=== PATIENT | female | born 1985 | race Caucasian/White ===

== ENCOUNTER 2017-10-24 07:32 | Inpatient (IN) | payer MEDICAID ==
[2017-10-24] MEDS ORDERED: NORMOSOL-R PH 7.4 1,000 ML IV ONE (11:36)
[2017-10-24] MEDS ORDERED: XYLOCAINE 2% INFILTRATI ONE (11:47)
[2017-10-24] MEDS ORDERED: BRETHINE SUB-Q PRN (11:47)
[2017-10-24] MEDS ORDERED: BRETHINE IVP PRN (11:47)
[2017-10-24] MEDS ORDERED: MINERAL OIL PO PRN (11:47)
[2017-10-24] MEDS ORDERED: ePHEDrine SULFATE IV PRN ×2 (11:47→12:21)
[2017-10-24] MEDS ORDERED: STADOL IV PRN (11:47)
--- NOTE | 2017-10-24 11:47 | History and Physical Report ---
History of Present Illness Date of examination: 10/24/17 Date of admission: 10/24/17 11:20 Chief complaint: contractions History of present illness: 31y/o @ 38+2 weeks presents in active labor. She denies leakage of fluid. The patient transferred her care @ 31 weeks from [place]. She reports conceiving on an IUD. GBS negative. Past History Past Medical History: no pertinent history Past Surgical History: no surgical history MEDICAL INTERN History: hepatitis C Social history: - Obstetrical History Expected Date of Delivery: 11/05/17 Actual Gestation: 38 Week(s) 2 Day(s) : 6 Para: 4 Hx # Term Pregnancies: 4 Number of Pregnancies: 0 Spontaneous Abortions: 1 Induced : 0 Number of Living Children: 4 Medications and Allergies Allergies Allergy/AdvReac Type Severity Reaction Status Date / Time No Known Allergies Allergy Verified 10/24/17 07:35 Home Medications Medication Instructions Recorded Confirmed Last Taken Type Vits96/Iron Fum/Folic 1 tab PO DAILY 03/15/14 10/24/17 10/23/17 09:00 History [ Tablet] 1 Active Meds: Active Medications Influenza Virus Vaccine Quadrival (Fluarix Quad 0488-5389(36 Mos+) 0.5 ml IM .ONCE ONE Stop: 10/25/17 12:01 Review of Systems All systems: negative Genitourinary: pelvic pain, contractions - Vital Signs Vital signs: Vital Signs Pulse BP 105 H 111/68 10/24/17 07:58 10/24/17 07:58 Temp Pulse Resp BP Pulse Ox 98.4 F 105 H 18 111/68 10/24/17 11:32 10/24/17 07:58 10/24/17 11:32 10/24/17 07:58 - Physical Exam Breasts: Positive: deferred Cardiovascular: Regular rate Lungs: Positive: Clear to auscultation Abdomen: Positive: normal appearance Results All other labs normal. Assessment and Plan - Patient Problems (1) Active labor at term Current Visit: No Status: Acute Plan to address problem: admit to L&D
[2017-10-24 11:58] LABS: Hematocrit 37.7 % (30.3-42.9); Hemoglobin 12.2 gm/dl (10.1-14.3); Mean Corpuscular HGB Conc 33 % (30-34); Mean Corpuscular Hemoglobin 29 pg (28-32); Mean Corpuscular Volume 88 fl (79-97); Platelet Count 183 K/mm3 (140-440); Red Cell Distribution Width 17.8 % (13.2-15.2)
[2017-10-24] MEDS ORDERED: PITOCin/NS 20 UNIT/1000ML DRIP 20 UNITS/1,000 ML BAG IV SCH (12:00)
[2017-10-24] MEDS ORDERED: NORMOSOL-R PH 7.4 1,000 ML IV SCH (12:00)
[2017-10-24] MEDS ORDERED: PITOCin/NS 30 UNIT/500ML 30 UNITS/500 ML BAG IV SCH (12:00)
[2017-10-24] MEDS ORDERED: NARCAN 2 MG/2 ML IV PRN (12:21)
[2017-10-24] MEDS ORDERED: fentaNYL-BUPIV 2 MCG/ML-0.125% 200 MCG/100 ML BAG EPIDURAL SCH (13:00)
--- NOTE | 2017-10-24 13:00 | Anesthesia Day of Surgery ---
Anesthesia Day of Surgery - Day of Surgery Patient Examined: Yes Patient H&P Reviewed: Yes Patient is NPO: Yes
--- NOTE | 2017-10-24 13:00 | Anesthesia Consultation ---
Anesthesia Consult and Med Hx Date of service: 10/24/17 - Airway Anesthetic Teeth Evaluation: Good ROM Head & Neck: Adequate Mental/Hyoid Distance: Adequate Mallampati Class: Class III Intubation Access Assessment: Possibly Difficult - Pulmonary Exam CTA: Yes - Cardiac Exam Cardiac Exam: RRR - Pre-Operative Health Status ASA Pre-Surgery Classification: ASA2 Proposed Anesthetic Plan: Epidural, Spinal - Pulmonary Hx Smoking: No Hx Asthma: Yes (over 4 months ago) COPD: No Hx Pneumonia: No - Cardiovascular System Hx Hypertension: No - Central Nervous System Hx Seizures: No Hx Psychiatric Problems: No - Endocrine Hx Renal Disease: No Hx End Stage Renal Disease: No Hx Hypothyroidism: No Hx Hyperthyroidism: No - Hematic Hx Anemia: Yes Hx Sickle Cell Disease: No - Other Systems Hx Alcohol Use: No
--- NOTE | 2017-10-24 15:38 | Procedure Note ---
OB Delivery Note - Delivery Date of Delivery: 10/24/17 Surgeon: SHARMAINE DE LA FUENTE Estimated blood loss: 100cc - Vaginal Delivery presentation: vertex Delivery position: OA Intrapartum events: none Delivery augmentation: pitocin Delivery monitor: external FHT Route of delivery: Delivery placenta: spontaneous Delivery cord: nuchal cord, 3 umbilical vessels Episiotomy: none Delivery laceration: none Anesthesia: epidural Delivery comments: Patient progressed to C/C/+1 and pushed to deliver a liveborn male with apgars of 8/9 and weight of 8lbs 8oz. After delivery of the head a nuchal cord x 1 was manually reduced. The anterior shoulder delivered. The was bulb suctioned and placed on the patient's abdomen after the cord was clamped and cut. The placenta delivered spontaneous intact with a 3VC. No lacerations. EBL 100ml - A at 1 minute: 8 (weight 8lbs 8oz) at 5 minutes: 9 Gender: Male (weight)
[2017-10-24] MEDS ORDERED: DULCOLAX PR PRN (15:39)
[2017-10-24] MEDS ORDERED: TUCKS PAD TP PRN (15:39)
[2017-10-24] MEDS ORDERED: LANSINOH TP PRN (15:39)
[2017-10-24] MEDS ORDERED: MILK OF MAGNESIA PO PRN (15:39)
[2017-10-24] MEDS ORDERED: PHENERGAN PR PRN (15:39)
[2017-10-24] MEDS ORDERED: TYLENOL PO PRN (15:39)
[2017-10-24] MEDS ORDERED: BENADRYL PO PRN (15:39)
[2017-10-24] MEDS ORDERED: ZOFRAN IV PRN (15:39)
[2017-10-24] MEDS ORDERED: PHENERGAN PO PRN (15:39)
[2017-10-24] MEDS ORDERED: SODIUM CHLORIDE FLUSH SYRINGE 10 ML IV NR (16:00)
[2017-10-25] MEDS: MOTRIN PO SCH ×5 (00:18→22:00)
[2017-10-25 05:58] LABS: Hematocrit 33.8 % (30.3-42.9)
[2017-10-25] MEDS: NORCO 5/325 PO PRN ×3 (08:17→22:41)
--- NOTE | 2017-10-25 08:30 | Progress Note ---
Assessment and Plan A/P PPD#1 doing well VSS desires tubal on outpatient h/h 12.2/37.7--11/33.8 O+ no rhogam indicated Subjective - Subjective Date of service: 10/25/17 Principal diagnosis: s/p Patient reports: appetite normal, voiding normally, pain well controlled, flatus , ambulating normally : doing well, nursing well, bottle feeding Objective - Vital Signs Latest vital signs: Vital Signs Temp Pulse Resp BP BP Pulse Ox 10/25/17 08:17 20 10/25/17 06:47 18 10/25/17 05:47 20 10/25/17 04:15 98.6 F 72 16 117/72 10/25/17 01:18 16 10/25/17 00:18 18 10/25/17 00:00 98.6 F 89 16 100/69 10/24/17 20:00 98.6 F 79 16 114/78 10/24/17 19:04 98.8 F 87 18 119/75 10/24/17 16:59 86 111/70 10/24/17 16:44 111 H 104/62 10/24/17 16:29 90 106/57 10/24/17 16:14 98 H 108/64 10/24/17 15:59 99 H 103/59 18 15:44 107 H 112/67 10/24/17 15:31 150 H 102/63 10/24/17 15:15 98 H 112/68 10/24/17 15:12 110 H 93 10/24/17 15:11 99 H 100 10/24/17 15:06 103 H 100 10/24/17 15:01 90 100 18 14:59 81 109/64 10/24/17 14:56 94 H 100 18 14:51 84 100 18 14:46 91 H 100 18 14:44 91 H 112/60 10/24/17 14:41 94 H 100 18 14:36 102 H 100 10/24/17 14:31 95 H 100 10/24/17 14:29 92 H 112/68 10/24/17 14:26 91 H 100 10/24/17 14:21 90 100 10/24/17 14:16 95 H 100 03/18/18 14:14 85 109/68 03/18/18 14:11 98 H 99 03/18/18 14:06 95 H 98 03/18/18 14:01 108 H 98 03/18/18 13:59 108 H 103/73 03/18/18 13:56 85 99 03/18/18 13:51 118 H 98 03/18/18 13:46 116 H 98 03/18/18 13:44 109 H 104/57 03/18/18 13:41 107 H 99 03/18/18 13:36 102 H 97 03/18/18 13:31 102 H 97 03/18/18 13:29 102 H 108/62 03/18/18 13:26 86 97 03/18/18 13:21 96 H 98 03/18/18 13:16 100 H 97/62 98 03/18/18 13:11 102 H 98 03/18/18 13:06 99 H 98 03/18/18 13:01 97 H 98 03/18/18 12:58 109 H 121/62 03/18/18 12:56 107 H 120/60 98 03/18/18 12:54 110 H 125/67 03/18/18 12:52 110 H 122/70 03/18/18 12:51 102 H 98 03/18/18 12:50 106 H 124/68 03/18/18 12:48 106 H 124/73 03/18/18 12:46 107 H 116/66 98 03/18/18 12:44 117 H 111/64 03/18/18 12:42 105 H 116/67 03/18/18 12:41 102 H 98 03/18/18 12:40 104 H 120/71 03/18/18 12:38 108 H 119/72 03/18/18 12:36 96 H 126/79 99 03/18/18 12:34 100 H 123/76 03/18/18 12:32 105 H 135/75 03/18/18 12:31 110 H 98 03/18/18 12:15 110 H 121/64 03/18/18 12:01 103 H 120/59 03/18/18 11:47 96 H 106/61 03/18/18 11:32 98.4 F 18 Intake and Output 03/18/18 03/19/18 03/19/18 23:59 07:59 15:59 Intake Total 300 200 Output Total 700 Balance -400 200 Intake: Oral 200 Intake, Free Water 300 Output: Urine 700 Void 700 Other: Total, Intake Amount 200 Total, Output Amount 200 # Voids Void 1 - Exam Breasts: Present: normal Cardiovascular: Present: Regular rate, Normal S1 Lungs: Present: Clear to auscultation Abdomen: Present: normal appearance, soft, normal bowel sounds. Absent: distention, tenderness, guarding Vulva: both: normal Uterus: Present: normal, firm, fundal height below umbilicus. Absent: bogginess , tenderness Extremities: Present: normal Deep Tendon Reflex Grade: Normal +2 - Labs Labs: Abnormal lab results 10/24/17 Range/Units 11:00 WBC 13.4 H (4.5-11.0) K/mm3 RDW 17.8 H (13.2-15.2) %
--- NOTE | 2017-10-25 08:33 | Discharge Summary ---
Providers - Providers Date of Admission: 10/24/17 11:20 Date of discharge: 10/25/17 Attending physician: SHARMAINE DE LA FUENTE Primary care physician: SHARMAINE DE LA FUENTE Hospitalization Reason for admission: active labor Delivery: Episiotomy: none Laceration: none Other procedures: none complications: none [place] baby: male Condition at discharge: Good Disposition: DC-01 TO HOME OR SELFCARE Plan - Provider Discharge Summary Activity: routine, no sex for 6 weeks, no strenuous exercise Diet: routine Instructions: routine Additional instructions: [] Smoking cessation referral if applicable(refer to patient education folder for contact #) [] Refer to [facility]'s [facility] Booklet Call your doctor immediately for: * Fever > 100.5 * Heavy vaginal bleeding ( >1 pad per hour) * Severe persistent headache * Shortness of breath * Reddened, hot, painful area to leg or breast * Drainage or odor from incision. * Keep incision clean and dry at all times and follow doctor's instructions regarding bathing/showering - Follow up plan Follow up: SHARMAINE DE LA FUENTE MD [Primary Care Provider] - 11/22/17
[2017-10-25] MEDS ORDERED: Fluarix Quad 2017-2018(36 MOS+ IM ONE (12:00)
[2017-10-26] MEDS: MOTRIN PO SCH ×2 (00:09→06:28)
[2017-10-26] MEDS ORDERED: BOOSTRIX IM ONE (06:00)
[2017-10-26 08:55] VITALS: BP 104/62
== END 2017-10-26 12:00 | disposition home or self-care (01) | DRG 775 ==
LOC: TRG 07:32 → LD 11:20 → OB 17:42 → UNDODISIN 17:51
PROVIDERS: ADMIT Obstetrics & Gynecology; ATTEND Obstetrics & Gynecology
PROC: 10E0XZZ Delivery of Products of Conception, External Approach (ICD-10-PCS; principal; 2017-10-24)
PROC: 3E0R3BZ Introduction of Anesthetic Agent into Spinal Canal, Percutaneous Approach (ICD-10-PCS; 2017-10-24)
PROC: 00HU33Z Insertion of Infusion Device into Spinal Canal, Percutaneous Approach (ICD-10-PCS; 2017-10-24)
DX: O69.81X0 Labor and delivery complicated by cord around neck, without compression, not applicable or unspecified (principal); O99.02 Anemia complicating childbirth; D64.9 Anemia, unspecified; O99.52 Diseases of the respiratory system complicating childbirth; Z3A.38 38 weeks gestation of pregnancy; Z37.0 Single live birth; J45.909 Unspecified asthma, uncomplicated
CPT/HCPCS: 36415; 59025; 85014; 85018; 85027; 86850; 86900; 86901; 90471; 90686; 90715; 99211; A6250; G0008; G0463; J2590

== ENCOUNTER 2017-12-08 05:48 | Day surgery (SDC) | payer MEDICAID ==
[2017-12-08] MEDS ORDERED: LACTATED RINGERS 1,000 ML IV SCH (06:00)
[2017-12-08] MEDS ORDERED: VERSED IV NR (06:00)
[2017-12-08] MEDS ORDERED: NACL BACTERIOSTATIC INFILTRATI ONE (06:22)
--- NOTE | 2017-12-08 06:53 | Anesthesia Consultation ---
Anesthesia Consult and Med Hx Date of service: 12/08/17 - Airway Anesthetic Teeth Evaluation: Good ROM Head & Neck: Adequate Mental/Hyoid Distance: Adequate (3FB) Mallampati Class: Class II Intubation Access Assessment: Probably Good - Pulmonary Exam CTA: Yes - Cardiac Exam Cardiac Exam: RRR (grade 1 murmur) - Pre-Operative Health Status ASA Pre-Surgery Classification: ASA2 Proposed Anesthetic Plan: General - Pulmonary Hx Smoking: No Hx Asthma: Yes (Not treated - not recently active) COPD: No Hx Pneumonia: No - Cardiovascular System Hx Hypertension: No Hx Heart Murmur: Yes - Central Nervous System Hx Seizures: No Hx Psychiatric Problems: No - Gastrointestinal Hx Gastroesophageal Reflux Disease: No (periodic heartburn treated with OTC Prevacid PRN) - Endocrine Hx Hypothyroidism: No Hx Hyperthyroidism: No - Hematic Hx Anemia: Yes Hx Sickle Cell Disease: No - Other Systems Hx Alcohol Use: No Hx Cancer: No
[2017-12-08] MEDS ORDERED: TORADOL IV PRN (06:54)
[2017-12-08] MEDS ORDERED: ZOFRAN IV PRN ×2 (06:54→08:12)
[2017-12-08] MEDS ORDERED: PERCOCET 5/325 PO PRN ×2 (06:54→09:01)
--- NOTE | 2017-12-08 06:54 | Anesthesia Day of Surgery ---
Anesthesia Day of Surgery - Day of Surgery Patient Examined: Yes Patient H&P Reviewed: Yes Patient is NPO: Yes
[2017-12-08] MEDS ORDERED: PEPCID IV NR (07:00)
[2017-12-08] MEDS ORDERED: ROBINUL IV NR (07:00)
[2017-12-08] MEDS ORDERED: DECADRON ONE (07:11)
[2017-12-08] MEDS ORDERED: ZOFRAN ONE (07:11)
[2017-12-08] MEDS ORDERED: XYLOCAINE MPF 2% ONE (07:11)
[2017-12-08] MEDS ORDERED: ZEMURON IV ONE (07:11)
[2017-12-08] MEDS ORDERED: TORADOL ONE (07:11)
[2017-12-08] MEDS ORDERED: SUBLIMAZE ONE (07:12)
[2017-12-08] MEDS ORDERED: DIPRIVAN 10 MG/ML IV ONE (07:12)
--- NOTE | 2017-12-08 07:19 | Short Stay Summary ---
Short Stay Documentation Date of service: 12/08/17 Narrative H&P: 32y/o with undesired fertility. She has been counseled on other contraceptive options and has elected for permanent sterilization. - History Principal diagnosis: Undesired fertility Past Medical History: other (Hepatitis C) Past Surgical History: No surgical history Social history: - Allergies and Medications Current Medications: Allergies No Known Allergies Allergy (Verified 12/06/17 15:36) Home Medications Medication Instructions Recorded Confirmed Last Taken Type No Known Home Medications [No 12/06/17 12/06/17 Unknown History Reported Home Medications] Active Medications Hydromorphone HCl (Dilaudid) 0.5 mg IV Q10MIN PRN PRN Reason: Pain , Severe (7-10) Lactated Ringer's (Lactated Ringers) 1,000 mls @ 100 mls/hr IV DIRECT MILENA Last Admin: 12/08/17 06:15 Dose: 100 mls/hr Midazolam HCl (Versed) 2 mg IV PREOP NR Stop: 12/08/17 23:59 - Physical exam General appearance: no acute distress Integumentary: no rash HEENT: Atraumatic Lungs: Clear to auscultation Breasts: deferred Heart: Regular rate Gastrointestinal: normal Female Genitourinary: deferred Rectal Exam: deferred - Brief post op/procedure progress note Date of procedure: 12/08/17 Pre-op diagnosis: undesired fertility Post-op diagnosis: same Procedure: Laparoscopic bilateral tubal ligation Evacuation of ovarian cyst fluid Anesthesia: GETA Surgeon: SHARMAINE DE LA FUENTE Estimated blood loss: none Pathology: list (ovarian cyst fluid) Specimen disposition: to lab Condition: stable - Hospital course Hospital course: The patient was admitted the day of surgery and underwent a bilateral tubal ligation. Please see operative note for details of surgery. Postoperative course was uneventful. - Disposition Condition at discharge: Good Disposition: DC-01 TO HOME OR SELFCARE Short Stay Discharge Plan Activity: other (pelvic rest for 1 week) Diet: regular Additional Instructions: Follow-up is not required Follow-up as needed Prescriptions: Ibuprofen [Motrin] 800 mg PO Q8HR PRN #60 tablet PRN Reason: Pain oxyCODONE /ACETAMINOPHEN [Percocet 5/325] 1 tab PO Q6HR PRN #30 tablet PRN Reason: Pain
[2017-12-08] MEDS ORDERED: MARCAINE 0.5% 30 ML INFILTRATI ONE (07:25)
[2017-12-08] MEDS ORDERED: MARCAINE 0.5% INFILTRATI ONE (08:00)
[2017-12-08] MEDS ORDERED: NACL 0.9% IR ONE (08:00)
[2017-12-08] MEDS ORDERED: DILAUDID ONE (08:03)
[2017-12-08] MEDS ORDERED: NEO SYNEPHRINE/NS Syringe(OR USE) IV ONE (08:09)
[2017-12-08] MEDS ORDERED: NEOSTIGMINE ONE (08:13)
[2017-12-08] MEDS ORDERED: ROBINUL ONE (08:18)
[2017-12-08] MEDS ORDERED: ROMAZICON IV ONE (08:18)
--- NOTE | 2017-12-08 08:21 | Operative Report ---
Operative Report Operative Report: Date of surgery: 12/08/2017 Preoperative diagnosis: Unwanted fertility Postoperative diagnosis: Same as above Procedure: Laparoscopic bilateral tubal ligation with Filshie clips; aspiration of ovarian cyst Surgeon: Ilda Valle M.D. Anesthesia: General endotracheal anesthesia Estimated blood loss: Minimal Findings: Normal uterus and tubes bilaterally. Right simple ovarian cyst and normal left ovary Indication: 32-year-old 015 with undesired fertility. The patient elected for permanent sterilization. Procedure: The patient was taken to the operating room and given general endotracheal anesthesia without complication. The patient is prepped and draped in a normal sterile fashion. A bivalve speculum was placed in the patient's vagina and a single-tooth tenaculum was placed on the anterior lip of the cervix .A uterine acorn manipulato rwas placed, and the bivalve speculum was then removed. Attention was then turned to the patient's abdomen where a 5 mm infraumbilical skin incision was then made. A Veress needle was placed and peritoneal entry was verified water-filled syringe. Insufflation of the peritoneal cavity was performed with CO2 gas. A 5 mm trocar was placed and the laparoscope was then inserted. The patient was then placed in Trendelenburg. A 7 mm suprapubic skin incision was then made. Under direct visualization a 7 mm trocar was then placed. General survey of the patient's abdomen revealedefault value. The fallopian tube was then followed out to the fimbriated end. A Filshie clip was placed, on the ampullary portion of the tube. This was performed on the contralateral side as well. There were findings of a right ovarian simple cyst. A needle was injected into the ovarian cyst with aspiration of clear carolyn fluid. The fluid was sent to pathology. The 7 mm trocar was then removed. The pneumoperitoneum was then released. The 5 mm trocar laparoscope was then removed. The skin incisions were then closed with 4-0 Monocryl. The incisions were injected with quarter percent Marcaine. Dressings were applied to the incision. The vaginal instruments were then removed atraumatically. Then successfully extubated and taken to the recovery room. All sponge laps and needle counts were correct 2.
[2017-12-08] MEDS: DILAUDID IV PRN ×2 (08:45→08:55)
[2017-12-08 09:54] VITALS: BP 121/67
--- NOTE | 2017-12-08 11:19 | Post Anesthesia Evaluation ---
- Post Anesthesia Evaluation Patient Participated: Yes Airway Patent: Yes Stable Respiratory Function: Yes Nausea/Vomiting: No Temp > 96.8F: Yes Pain Manageable: Yes Adequeate Hydration: Yes Anesthesia Complications: No
== END 2017-12-08 10:00 | disposition home or self-care (01) ==
LOC: OR 05:48
PROVIDERS: ATTEND Obstetrics & Gynecology
DX: Z30.2 Encounter for sterilization (principal); N83.01 Follicular cyst of right ovary; B19.20 Unspecified viral hepatitis C without hepatic coma; J45.909 Unspecified asthma, uncomplicated; K21.9 Gastro-esophageal reflux disease without esophagitis
CPT/HCPCS: 58671; 81025; 88112; J1100; J1170; J1885; J2250; J2370; J2405; J2704; J2710; J3010; J7120